=== PATIENT | female | born 1950 | race Caucasian/White ===

== ENCOUNTER 2016-07-18 10:20 | Outpatient (CLI) | payer BC | END 2016-07-18 10:21 | disposition home or self-care (01) | DX: E11.65 Type 2 diabetes mellitus with hyperglycemia (principal); E78.5 Hyperlipidemia, unspecified; Z79.899 Other long term (current) drug therapy ==

== ENCOUNTER 2016-11-07 09:00 | Outpatient (CLI) | payer BC | END 2016-11-07 23:59 | disposition home or self-care (01) | DX: N39.0 Urinary tract infection, site not specified (principal) ==

== ENCOUNTER 2016-11-14 11:37 | Outpatient (CLI) | payer BC | END 2016-11-14 11:38 | disposition home or self-care (01) | DX: E78.5 Hyperlipidemia, unspecified (principal); E11.65 Type 2 diabetes mellitus with hyperglycemia; Z79.899 Other long term (current) drug therapy ==

== ENCOUNTER 2017-03-01 13:44 | Outpatient (CLI) | payer BC ==
--- NOTE | 2017-03-02 12:31 | Mammography Report ---
DIGITAL SCREENING MAMMOGRAM: 03/01/2017 CLINICAL INDICATION: A 66-year-old nulliparous patient for screening. COMPARISON: 01/2015, 08/2012, 08/2010, 06/2009, 04/2008, 04/2007 TECHNIQUE: Routine CC and MLO projections were obtained of the breasts. FINDINGS: The breasts demonstrate scattered fibroglandular densities bilaterally. Coarse and puncta te, typically benign calcifications are present. No suspicious masses, clustered microcalcifications , or regions of architectural distortion are identified. IMPRESSION: BENIGN FINDINGS. RECOMMENDATION: Routine annual screening unless otherwise clinically indicated. BIRADS CATEGORY 2 - BENIGN FINDINGS. STANDARD QUALIFYING STATEMENTS 1. This examination was reviewed with the aid of Computer-Aided Detection (CAD). 2. A negative or benign imaging report should not delay biopsy if clinically suspicious findings are present. Consider surgical consultation if warranted. More than 5% of cancers are not identified by i maging. 3. Dense breasts may obscure an underlying neoplasm. JOB #: [id number] EXT JOB #:[id number]
== END 2017-03-01 13:45 | disposition home or self-care (01) ==
LOC: DI.N 13:44
PROVIDERS: ATTEND Physician Assistant Medical
DX: Z12.31 Encounter for screening mammogram for malignant neoplasm of breast (principal)
CPT/HCPCS: 77067

== ENCOUNTER 2017-03-04 12:22 | Outpatient (CLI) | payer BC | END 2017-03-04 12:23 | disposition short-term general hospital (02) | LOC: EMS 12:22 | PROVIDERS: ATTEND Surgery | DX: M25.551 Pain in right hip (principal); W01.0XXA Fall on same level from slipping, tripping and stumbling without subsequent striking against object, initial encounter; Y92.009 Unspecified place in unspecified non-institutional (private) residence as the place of occurrence of the external cause | CPT/HCPCS: A0425; A0427 ==

== ENCOUNTER 2017-08-28 08:00 | Outpatient (CLI) | payer MEDICARE, BC ==
[2017-08-28 13:39] LABS: BASOPHILS # (AUTO) 0.1 10^3/uL (0.0-0.1); EOSINOPHILS # (AUTO) 0.3 10^3/uL (0.0-0.7); EOSINOPHILS % (AUTO) 2.9 %; HGB - HEMOGLOBIN 10.6 g/dL (12.0-16.0); LYMPHOCYTES # (AUTO) 2.5 10^3/uL (1.5-3.5); MEAN CORPUSCULAR HEMOGLOBIN 26.1 pg (27.0-31.0); MEAN CORPUSCULAR VOLUME 78.9 fL (81.0-99.0); MEAN PLATELET VOLUME 9.5 fL (7.9-10.8); MONOCYTES # (AUTO) 0.6 10^3/uL (0.0-1.0); MONOCYTES % (AUTO) 6.6 %; NEUTROPHILS # (AUTO) 6.2 10^3/uL (1.5-6.6); NEUTROPHILS % (AUTO) 63.5 %; PLT - PLATELET COUNT 271 10^3/uL (130-450); RED BLOOD COUNT 4.07 10^6/uL (4.20-5.40); RED CELL DISTRIBUTION WIDTH 15.4 % (12.0-15.0); WHITE BLOOD COUNT 9.7 x10^3/uL (4.8-10.8)
[2017-08-28 14:08] LABS: ALBUMIN 3.5 g/dL (3.2-5.5); ALBUMIN/GLOBULIN RATIO 0.9 (1.0-2.2); ALKALINE PHOSPHATASE 98 IU/L (42-121); ALT ALANINE AMINOTRANSFERASE 15 IU/L (10-60); AST ASPARTATE AMINOTRANSFERASE 24 IU/L (10-42); BILIRUBIN,TOTAL 0.4 mg/dL (0.2-1.0); BUN - BLOOD UREA NITROGEN 34 mg/dL (6-20); CALCIUM 9.3 mg/dL (8.5-10.3); CARBON DIOXIDE - CO2 24 mmol/L (21-32); CHLORIDE 99 mmol/L (101-111); CHOL/HDL RATIO 6.1 (<4.4); CHOLESTEROL 239 mg/dL; CREATININE 1.1 mg/dL (0.4-1.0); GFR - MDRD 50 (>89); GLUCOSE 235 mg/dL (70-100); HDL CHOLESTEROL 39 mg/dL; SODIUM 134 mmol/L (135-145); TOTAL PROTEIN 7.3 g/dL (6.7-8.2)
[2017-08-28 14:28] LABS: LDL CHOLESTEROL,DIRECT 116 mg/dL
[2017-08-28 14:47] LABS: HB2 TOTAL 11.2 g/dL; HEMOGLOBIN A1C 1.06 g/dL; HEMOGLOBIN A1C % 10.8 % (4.6-6.2)
== END 2017-08-28 08:01 | disposition home or self-care (01) ==
LOC: LAB.WCP 08:00
PROVIDERS: ATTEND Physician Assistant Medical
DX: E11.65 Type 2 diabetes mellitus with hyperglycemia (principal)
CPT/HCPCS: 36415; 80053; 80061; 83036; 83721; 84443; 85025

== ENCOUNTER 2017-11-27 14:59 | Outpatient (CLI) | payer MEDICARE, BC ==
[2017-11-27 20:01] LABS: HB2 TOTAL 11.5 g/dL; HEMOGLOBIN A1C 0.82 g/dL; HEMOGLOBIN A1C % 8.7 % (4.6-6.2)
== END 2017-11-27 15:00 ==
LOC: LAB.WCP 14:59
PROVIDERS: ATTEND Physician Assistant
DX: E11.65 Type 2 diabetes mellitus with hyperglycemia (principal)
CPT/HCPCS: 36415; 83036

== ENCOUNTER 2017-12-20 08:00 | Outpatient (CLI) | payer MEDICARE, BC ==
[2017-12-20 18:54] LABS: BASOPHILS # (AUTO) 0.1 10^3/uL (0.0-0.1); EOSINOPHILS # (AUTO) 0.2 10^3/uL (0.0-0.7); EOSINOPHILS % (AUTO) 2.4 %; LYMPHOCYTES # (AUTO) 2.4 10^3/uL (1.5-3.5); LYMPHOCYTES % (AUTO) 27.8 %; MEAN CORPUSCULAR HEMOGLOBIN 26.2 pg (27.0-31.0); MEAN CORPUSCULAR HGB CONC 32.1 g/dL (32.0-36.0); MEAN CORPUSCULAR VOLUME 81.5 fL (81.0-99.0); MEAN PLATELET VOLUME 8.5 fL (7.9-10.8); MONOCYTES # (AUTO) 0.5 10^3/uL (0.0-1.0); NEUTROPHILS # (AUTO) 5.5 10^3/uL (1.5-6.6); NEUTROPHILS % (AUTO) 62.8 %; PLT - PLATELET COUNT 336 10^3/uL (130-450); RED BLOOD COUNT 4.19 10^6/uL (4.20-5.40); RED CELL DISTRIBUTION WIDTH 15.3 % (12.0-15.0); WHITE BLOOD COUNT 8.8 x10^3/uL (4.8-10.8)
[2017-12-20 19:28] LABS: ALBUMIN 3.7 g/dL (3.2-5.5); ALBUMIN/GLOBULIN RATIO 0.9 (1.0-2.2); BILIRUBIN,TOTAL 0.3 mg/dL (0.2-1.0); CALCIUM 9.7 mg/dL (8.5-10.3); CREATININE 1.1 mg/dL (0.4-1.0); MAGNESIUM 1.7 mg/dL (1.7-2.8); PHOSPHORUS 3.3 mg/dL (2.5-4.6); TOTAL PROTEIN 7.9 g/dL (6.7-8.2)
== END 2017-12-20 08:01 | disposition home or self-care (01) ==
LOC: LAB.WCP 08:00
PROVIDERS: ATTEND Physician Assistant
DX: R42 Dizziness and giddiness (principal); I10 Essential (primary) hypertension; R00.2 Palpitations; R07.89 Other chest pain; R06.09 Other forms of dyspnea
CPT/HCPCS: 36415; 80053; 83735; 84100; 85025

== ENCOUNTER 2017-12-25 10:54 | Outpatient (CLI) | payer MEDICARE, BC ==
[2017-12-25 13:26] LABS: % IRON SATURATION 7 % (20-50); IRON 31 ug/dL (28-170); TOTAL IRON BINDING CAPACITY 430 ug/dL (250-450); TRANSFERRIN 307 mg/dL (192-382)
== END 2017-12-25 10:55 | disposition home or self-care (01) ==
LOC: LAB.WCP 10:54
PROVIDERS: ATTEND Physician Assistant
DX: D64.9 Anemia, unspecified (principal)
CPT/HCPCS: 36415; 82728; 83540; 84466

== ENCOUNTER 2017-12-27 13:57 | Outpatient (CLI) | payer MEDICARE, BC | END 2017-12-27 13:58 | disposition home or self-care (01) | LOC: DI 13:57 | PROVIDERS: ATTEND Physician Assistant | DX: R07.89 Other chest pain (principal); R06.00 Dyspnea, unspecified | CPT/HCPCS: 93306 ==

== ENCOUNTER 2018-01-10 10:54 | Outpatient (CLI) | payer MEDICARE, BC ==
[2018-01-10] MEDS ORDERED: REGADENOSON 0.4 MG/5 ML SYRINGE IVP ONE (12:49)
--- NOTE | 2018-01-10 18:03 | CARDIAC PROCEDURE NOTE ---
DATE OF SERVICE: 01/10/2018 Physician: DANIELE Ibarra PCP: Heather Crowder PA-C PROCEDURE: Pharmacologic cardiac stress test. PROCEDURE SYMPTOMS: Fatigue, chest pain, dyspnea on exertion. CARDIAC RISK FACTORS: Age, diabetes, hypertension, hyperlipidemia. PREVIOUS CARDIAC PROCEDURES: ETT. CLINICAL HISTORY: A 67-year-old female without known coronary artery disease. INITIAL RESTING VITAL SIGNS: BP 118/76, heart rate 90, height 64 inches, weight 270 pounds, BMI 46.34. PROCEDURE AND FINDINGS: Patient identity and date verified. Consent signed. Pharmaceutical check. Pharmacologic stress testing was performed with Lexiscan at a dose of 0.4 mg over 10 seconds. The heart rate increased to 109 beats per minute from the infusion. Blood pressure response was normal during the stress procedure. The patient developed moderate infusion -related symptoms, which included chest heaviness, leg cramps, and headache. These symptoms resolved slowly over time. The resting electrocardiogram demonstrated normal sinus rhythm with no ST or T-wave changes. Maximum ST-segment depression with stress was less than 0.5 mm and upsloping. There were occasional monomorphic PVCs. FINAL IMPRESSION 1. Negative electrocardiogram for ischemia in the setting of vasodilator stress. 2. Nondiagnostic stress test for angina. 3. Occasional premature ventricular contractions. 4. Await myocardial perfusion report. TD: 01/10/2018 14:23 MTDSandra
[2018-01-10 18:52] VITALS: BP 118/76
[2018-01-11] MEDS ORDERED: REGADENOSON 0.4 MG/5 ML SYRINGE IVP ONE (12:41)
--- NOTE | 2018-01-11 14:19 | Nuclear Medicine Report ---
Procedure Date: 01/11/2018 Accession Number: [id number] / [id number] Procedure: NM - Myocardial Perfusion STR/RST CPT Code: FULL RESULT: EXAM: SINGLE-ISOTOPE PHARMACOLOGICAL STRESS TEST WITH REGADENOSON. SINGLE-ISOTOPE AND TWO-DAY REST/STRESS MYOCARDIAL PERFUSION SCANS WITH TOMOGRAPHIC IMAGING, QUANTITATIVE ANALYSIS, WALL MOTION ANALYSIS AND CALCULATION OF EJECTION FRACTION. EXAM DATE: 01/11/2018 12:45 PM. CLINICAL HISTORY: Chest pain, shortness of breath. COMPARISON: None. TECHNIQUE: A pharmacological stress was performed with the infusion of 0.4 mg regadenoson per protocol. According to protocol, 25 mCi of Tc-99m sestamibi was injected for stress myocardial perfusion scan. Motion correction was applied when appropriate. The following day after the intravenous administration of 25 mCi of Tc-99m sestamibi, a rest myocardial perfusion scan was done with tomography. Motion correction was applied when appropriate. Gated tomographic images were obtained for wall motion analysis and computation of left ventricular ejection fraction. FINDINGS: There is a small, mild, partial thickness, reversible apical perfusion defect. Wall motion analysis demonstrates normal wall motion. There is mild chamber enlargement which does not alter between rest and stress images. Left ventricular ejection fraction is 56%. IMPRESSION: 1. Small, mild partial-thickness reversible apical perfusion defect suggestive of ischemia. 2. Left ventricular ejection fraction of 56%, which is considered normal. 3. Normal segmental and global wall motion. 4. Mild left ventricular chamber enlargement on rest and stress imaging. RADIA
== END 2018-01-10 10:55 | disposition home or self-care (01) ==
LOC: DI 10:54
PROVIDERS: ATTEND Physician Assistant
DX: R07.89 Other chest pain (principal); R06.00 Dyspnea, unspecified; I51.7 Cardiomegaly
CPT/HCPCS: 78452; 93017; A9500; J2785

== ENCOUNTER 2018-04-05 09:59 | Outpatient (CLI) | payer MEDICARE, BC ==
[2018-04-05 13:29] LABS: HB2 TOTAL 12.3 g/dL; HEMOGLOBIN A1C 0.97 g/dL; HEMOGLOBIN A1C % 9.4 % (4.6-6.2)
== END 2018-04-05 10:00 | disposition home or self-care (01) ==
LOC: LAB.WCP 09:59
PROVIDERS: ATTEND Physician Assistant
DX: E11.65 Type 2 diabetes mellitus with hyperglycemia (principal)
CPT/HCPCS: 36415; 83036

== ENCOUNTER 2018-10-15 08:00 | Outpatient (CLI) | payer MEDICARE, BC ==
[2018-10-15 12:38] LABS: BASOPHILS # (AUTO) 0.1 10^3/uL (0.0-0.1); BASOPHILS % (AUTO) 1.1 %; EOSINOPHILS # (AUTO) 0.3 10^3/uL (0.0-0.7); EOSINOPHILS % (AUTO) 3.7 %; HGB - HEMOGLOBIN 11.9 g/dL (12.0-16.0); LYMPHOCYTES # (AUTO) 1.9 10^3/uL (1.5-3.5); LYMPHOCYTES % (AUTO) 23.1 %; MEAN CORPUSCULAR HEMOGLOBIN 26.8 pg (27.0-31.0); MEAN CORPUSCULAR HGB CONC 33.1 g/dL (32.0-36.0); MEAN CORPUSCULAR VOLUME 80.9 fL (81.0-99.0); MEAN PLATELET VOLUME 8.4 fL (7.9-10.8); MONOCYTES # (AUTO) 0.5 10^3/uL (0.0-1.0); MONOCYTES % (AUTO) 6.2 %; NEUTROPHILS # (AUTO) 5.4 10^3/uL (1.5-6.6); NEUTROPHILS % (AUTO) 65.9 %; PLT - PLATELET COUNT 262 10^3/uL (130-450); RED BLOOD COUNT 4.45 10^6/uL (4.20-5.40); WHITE BLOOD COUNT 8.2 x10^3/uL (4.8-10.8)
[2018-10-15 12:44] LABS: ALBUMIN 3.5 g/dL (3.2-5.5); ALBUMIN/GLOBULIN RATIO 0.9 (1.0-2.2); ALKALINE PHOSPHATASE 93 IU/L (42-121); ALT ALANINE AMINOTRANSFERASE 15 IU/L (10-60); AST ASPARTATE AMINOTRANSFERASE 17 IU/L (10-42); BILIRUBIN,TOTAL 0.5 mg/dL (0.2-1.0); BUN - BLOOD UREA NITROGEN 25 mg/dL (6-20); CALCIUM 9.5 mg/dL (8.5-10.3); CARBON DIOXIDE - CO2 28 mmol/L (21-32); CHLORIDE 97 mmol/L (101-111); CHOL/HDL RATIO 5.3 (<4.4); CHOLESTEROL 218 mg/dL; CREATININE 0.8 mg/dL (0.4-1.0); GFR - MDRD 72 (>89); GLUCOSE 217 mg/dL (70-100); HDL CHOLESTEROL 41 mg/dL; LDL CHOLESTEROL,CALCULATED 115 mg/dL; LDL/HDL RATIO 2.8 (<4.4); SODIUM 137 mmol/L (135-145); TOTAL PROTEIN 7.2 g/dL (6.7-8.2); VLDL CHOLESTEROL 62 mg/dL
[2018-10-15 12:52] LABS: HB2 TOTAL 12.6 g/dL; HEMOGLOBIN A1C 1.13 g/dL; HEMOGLOBIN A1C % 10.4 % (4.6-6.2)
== END 2018-10-15 23:59 | disposition home or self-care (01) ==
LOC: LAB.WCP 08:00
PROVIDERS: ATTEND Physician Assistant
DX: E11.65 Type 2 diabetes mellitus with hyperglycemia (principal); E78.5 Hyperlipidemia, unspecified
CPT/HCPCS: 36415; 80053; 80061; 83036; 83721; 85025

== ENCOUNTER 2018-11-17 15:48 | Outpatient (CLI) | payer MEDICARE, BC ==
--- NOTE | 2018-11-18 09:36 | Ultrasound Report ---
Reason: ABDOMINAL MASS,LEFT LOWER QUADRANT Procedure Date: 11/17/2018 Accession Number: [id number] / [id number] Procedure: US - Abdomen Limited CPT Code: FULL RESULT: EXAM: ABDOMEN ULTRASOUND LIMITED EXAM DATE: 11/17/2018 04:22 PM. CLINICAL HISTORY: Abdominal mass, left lower quadrant. COMPARISON: None. TECHNIQUE: Real-time scanning was performed with static images obtained. FINDINGS: The area of clinical interest along the left lower quadrant abdominal wall was interrogated with grayscale and limited color Doppler ultrasound. This reveals mild thickening of the dermal layer decreased echogenicity is slightly heterogeneous in appearance without discrete mass or fluid collection. Limited color Doppler demonstrates no abnormal vascularity. IMPRESSION: Nonspecific induration of the dermal layer corresponds to the area of physical finding and patient discomfort. RADIA
== END 2018-11-17 15:49 | disposition home or self-care (01) ==
LOC: DI 15:48
PROVIDERS: ATTEND Physician Assistant
DX: R19.04 Left lower quadrant abdominal swelling, mass and lump (principal); L85.9 Epidermal thickening, unspecified
CPT/HCPCS: 76705

== ENCOUNTER 2018-11-19 08:00 | Outpatient (CLI) | payer MEDICARE, BC | END 2018-11-19 23:59 | disposition home or self-care (01) | LOC: LAB.R 08:00 | PROVIDERS: ATTEND Physician Assistant Medical | DX: L03.319 Cellulitis of trunk, unspecified (principal) | CPT/HCPCS: 87070; 87205 ==

== ENCOUNTER 2018-12-25 08:00 | Outpatient (CLI) | payer MEDICARE, BC ==
[2018-12-25 12:53] LABS: BASOPHILS # (AUTO) 0.1 10^3/uL (0.0-0.1); BASOPHILS % (AUTO) 0.6 %; EOSINOPHILS # (AUTO) 0.3 10^3/uL (0.0-0.7); EOSINOPHILS % (AUTO) 2.9 %; HGB - HEMOGLOBIN 11.8 g/dL (12.0-16.0); LYMPHOCYTES # (AUTO) 1.9 10^3/uL (1.5-3.5); LYMPHOCYTES % (AUTO) 19.3 %; MEAN CORPUSCULAR HEMOGLOBIN 25.6 pg (27.0-31.0); MEAN CORPUSCULAR HGB CONC 29.9 g/dL (32.0-36.0); MEAN CORPUSCULAR VOLUME 85.5 fL (81.0-99.0); MEAN PLATELET VOLUME 10.6 fL (7.9-10.8); MONOCYTES # (AUTO) 0.6 10^3/uL (0.0-1.0); MONOCYTES % (AUTO) 6.2 %; NEUTROPHILS # (AUTO) 6.9 10^3/uL (1.5-6.6); NEUTROPHILS % (AUTO) 70.5 %; PLT - PLATELET COUNT 311 10^3/uL (130-450); RED BLOOD COUNT 4.61 10^6/uL (4.20-5.40); RED CELL DISTRIBUTION WIDTH 14.4 % (12.0-15.0); WHITE BLOOD COUNT 9.7 x10^3/uL (4.8-10.8)
[2018-12-25 13:23] LABS: ALBUMIN 3.5 g/dL (3.2-5.5); ALBUMIN/GLOBULIN RATIO 0.9 (1.0-2.2); BILIRUBIN,TOTAL 0.6 mg/dL (0.2-1.0); CALCIUM 9.4 mg/dL (8.5-10.3); TOTAL PROTEIN 7.5 g/dL (6.7-8.2)
[2018-12-25 13:29] LABS: HB2 TOTAL 12.3 g/dL; HEMOGLOBIN A1C 0.98 g/dL; HEMOGLOBIN A1C % 9.4 % (4.6-6.2)
== END 2018-12-25 23:59 | disposition home or self-care (01) ==
LOC: LAB.WCP 08:00
PROVIDERS: ATTEND Physician Assistant
DX: E11.65 Type 2 diabetes mellitus with hyperglycemia (principal)
CPT/HCPCS: 36415; 80053; 83036; 85025

== ENCOUNTER 2019-06-12 14:07 | Outpatient (CLI) | payer MEDICARE, BC ==
[2019-06-12 18:52] LABS: BASOPHILS # (AUTO) 0.1 10^3/uL (0.0-0.1); BASOPHILS % (AUTO) 0.7 %; EOSINOPHILS # (AUTO) 0.2 10^3/uL (0.0-0.7); EOSINOPHILS % (AUTO) 1.8 %; HGB - HEMOGLOBIN 13.1 g/dL (12.0-16.0); LYMPHOCYTES % (AUTO) 25.5 %; MEAN CORPUSCULAR HEMOGLOBIN 26.6 pg (27.0-31.0); MEAN CORPUSCULAR HGB CONC 30.8 g/dL (32.0-36.0); MEAN CORPUSCULAR VOLUME 86.4 fL (81.0-99.0); MEAN PLATELET VOLUME 10.8 fL (7.9-10.8); MONOCYTES # (AUTO) 0.9 10^3/uL (0.0-1.0); MONOCYTES % (AUTO) 7.8 %; NEUTROPHILS # (AUTO) 7.6 10^3/uL (1.5-6.6); NEUTROPHILS % (AUTO) 63.8 %; PLT - PLATELET COUNT 327 10^3/uL (130-450); RED BLOOD COUNT 4.93 10^6/uL (4.20-5.40); RED CELL DISTRIBUTION WIDTH 14.6 % (12.0-15.0); WHITE BLOOD COUNT 11.9 x10^3/uL (4.8-10.8)
[2019-06-12 19:10] LABS: BILIRUBIN,TOTAL 0.6 mg/dL (0.2-1.0); CALCIUM 9.3 mg/dL (8.5-10.3); CREATININE 1.5 mg/dL (0.4-1.0); HB2 TOTAL 13.1 g/dL; HEMOGLOBIN A1C 1.09 g/dL; HEMOGLOBIN A1C % 9.8 % (4.6-6.2); TOTAL PROTEIN 8.1 g/dL (6.7-8.2)
== END 2019-06-12 23:59 | disposition home or self-care (01) ==
LOC: LAB.WCP 14:07
PROVIDERS: ATTEND Physician Assistant
DX: E11.65 Type 2 diabetes mellitus with hyperglycemia (principal)
CPT/HCPCS: 36415; 80053; 83036; 85025

== ENCOUNTER 2020-03-17 08:00 | Outpatient (CLI) | payer MEDICARE, BC ==
[2020-03-17 18:34] LABS: BASOPHILS # (AUTO) 0.1 10^3/uL (0.0-0.1); BASOPHILS % (AUTO) 0.9 %; EOSINOPHILS # (AUTO) 0.4 10^3/uL (0.0-0.7); EOSINOPHILS % (AUTO) 5.6 %; HGB - HEMOGLOBIN 11.2 g/dL (12.0-16.0); LYMPHOCYTES # (AUTO) 2.1 10^3/uL (1.5-3.5); LYMPHOCYTES % (AUTO) 32.6 %; MEAN CORPUSCULAR HEMOGLOBIN 26.9 pg (27.0-31.0); MEAN CORPUSCULAR HGB CONC 30.3 g/dL (32.0-36.0); MEAN CORPUSCULAR VOLUME 88.9 fL (81.0-99.0); MEAN PLATELET VOLUME 10.7 fL (7.9-10.8); MONOCYTES # (AUTO) 0.4 10^3/uL (0.0-1.0); MONOCYTES % (AUTO) 6.2 %; NEUTROPHILS # (AUTO) 3.6 10^3/uL (1.5-6.6); NEUTROPHILS % (AUTO) 54.2 %; PLT - PLATELET COUNT 307 10^3/uL (130-450); RED BLOOD COUNT 4.16 10^6/uL (4.20-5.40); RED CELL DISTRIBUTION WIDTH 14.2 % (12.0-15.0); WHITE BLOOD COUNT 6.6 x10^3/uL (4.8-10.8)
[2020-03-17 19:30] LABS: ALBUMIN 3.8 g/dL (3.2-5.5); ALBUMIN/GLOBULIN RATIO 1.2 (1.0-2.2); ALKALINE PHOSPHATASE 76 IU/L (42-121); ALT ALANINE AMINOTRANSFERASE 14 IU/L (10-60); AST ASPARTATE AMINOTRANSFERASE 18 IU/L (10-42); BILIRUBIN,TOTAL 0.7 mg/dL (0.2-1.0); BUN - BLOOD UREA NITROGEN 21 mg/dL (6-20); CALCIUM 9.6 mg/dL (8.5-10.3); CARBON DIOXIDE - CO2 27 mmol/L (21-32); CHLORIDE 98 mmol/L (101-111); CHOL/HDL RATIO 4.1 (<4.4); CHOLESTEROL 224 mg/dL; GLUCOSE 226 mg/dL (70-100); HDL CHOLESTEROL 55 mg/dL; LDL CHOLESTEROL,CALCULATED 122 mg/dL; LDL/HDL RATIO 2.2 (<4.4); SODIUM 136 mmol/L (135-145); TOTAL PROTEIN 7.1 g/dL (6.7-8.2); VLDL CHOLESTEROL 47 mg/dL
[2020-03-17 19:51] LABS: HEMOGLOBIN A1c% 10.2 % (4.27-6.07)
== END 2020-03-17 23:59 | disposition home or self-care (01) ==
LOC: LAB.WCP 08:00
PROVIDERS: ATTEND Physician Assistant
DX: E11.65 Type 2 diabetes mellitus with hyperglycemia (principal); E78.5 Hyperlipidemia, unspecified
CPT/HCPCS: 36415; 80053; 80061; 82043; 82570; 83036; 83721; 85025

== ENCOUNTER 2020-04-05 15:13 | Outpatient (CLI) | payer MEDICARE, BC | END 2020-04-05 15:14 | disposition home or self-care (01) | LOC: LAB 15:13 | PROVIDERS: ATTEND Ophthalmology | DX: Z01.812 Encounter for preprocedural laboratory examination (principal); Z20.828 Contact with and (suspected) exposure to other viral communicable diseases; H25.811 Combined forms of age-related cataract, right eye ==

== ENCOUNTER 2020-04-08 07:36 | Day surgery (SDC) | payer MEDICARE, BC ==
[2020-04-08] MEDS ORDERED: PHENYLEPHRINE 2.5% OPHTH 2 ML DROPS ONE (07:37)
[2020-04-08] MEDS ORDERED: KETOROLAC 0.45% OPHTH DROPS ONE (07:37)
[2020-04-08] MEDS ORDERED: PROPARACAINE 0.5% OPHTH DROPS 15 ML ONE (07:38)
[2020-04-08] MEDS ORDERED: LACTATED RINGERS 500 ML IV ONE ×2 (07:39→08:55)
[2020-04-08] MEDS ORDERED: CYCLOPENTOLATE 1% OPHTH DROPS 2 ML RIGHTEYE ONE (07:55)
[2020-04-08] MEDS ORDERED: MORPHINE 2 MG/ML CARPUJECT IVP PRN (08:11)
[2020-04-08] MEDS ORDERED: METOCLOPRAMIDE 10 MG/2 ML VIAL IVP PRN (08:11)
[2020-04-08] MEDS ORDERED: HYDROmorphone 0.5 MG/0.5 ML SYRINGE IVP PRN (08:11)
[2020-04-08] MEDS ORDERED: fentaNYL 100 MCG/2 ML VIAL IVP PRN (08:11)
[2020-04-08] MEDS ORDERED: ePHEDrine 50 MG/ML VIAL IVP PRN (08:11)
[2020-04-08] MEDS ORDERED: ONDANSETRON 4 MG/2 ML VIAL IVP PRN (08:11)
[2020-04-08] MEDS ORDERED: NALOXONE 0.4 MG/ML VIAL IVP PRN (08:11)
[2020-04-08] MEDS ORDERED: ATROPINE ABBOJECT 1 MG/10 ML SYRINGE IVP PRN (08:11)
--- NOTE | 2020-04-08 08:11 | ANESTHESIA ---
Pre-Anesthesia VS, & Labs - Diagnosis right eye cataract - Procedure right CATIOL Vital Signs: Temp Pulse Resp BP Pulse Ox 35.8 C L 76 20 132/55 H 96 04/08/20 07:43 04/08/20 07:43 04/08/20 07:43 04/08/20 07:43 04/08/20 07:43 Height: 5 ft 4 in Weight (kg): 114 kg Body Mass Index: 43.1 BMI Classification: Morbidly Obese - NPO >8 hours - Is Patient ?: No - Lab Results Current Lab Results: Laboratory Tests 04/08/20 08:00: POC Whole Bld Glucose 228 H Lab results reviewed: Yes Home Medications and Allergies Cetirizine HCl [Zyrtec] 10 mg PO DAILY 08/31/15 Excedrin 2 tab PO QID PRN 08/31/15 Gabapentin 600 mg PO TID 08/31/15 Insulin Glargine,Hum.rec.anlog [Toujeo Solostar] 50 unit SQ DAILY PM 08/31/15 Insulin Glulisine [Apidra Solostar] 0 - 30 unit SQ TIDWM 08/31/15 LORazepam [Lorazepam] 0.5 mg PO BID PRN 08/31/15 Lovastatin 80 mg PO QPM 08/31/15 Metformin HCl 1,000 mg PO BID 08/31/15 Triamterene/Hydrochlorothiazid [Triamterene-Hctz 75-50 mg Tab] 0.5 each PO DAILY 08/31/15 lisinopriL [Lisinopril] 10 mg PO DAILY 08/31/15 Dulaglutide [Trulicity] 1.5 mg SQ OAW 12/18/18 Ferrous Sulfate 325 mg PO DAILY 12/18/18 Metoprolol Succinate 25 mg PO BID 12/18/18 Cholecalciferol (Vitamin D3) [Vitamin D3] 1 tab PO DAILY 12/30/19 Escitalopram [Lexapro] 10 mg PO DAILY 12/30/19 Allergies/Adverse Reactions: Allergies Allergy/AdvReac Type Severity Reaction Status Date / Time codeine Allergy Itching Verified 08/31/15 16:07 Anes History & Medical History - Anesthetic History Anesthesia Complications: reports: No previous complications Family history of Anesthesia Complications: Denies Family history of Malignant Hyperthermia: Denies - Medical History Cardiovascular: reports: Hypertension, High cholesterol, Other Pulmonary: reports: None Gastrointestinal: reports: GERD Urinary: reports: Nocturia, Frequency Musculoskeletal: reports: Osteoarthritis, Chronic back pain Endocrine/Autoimmune: reports: Type 2 diabetes Blood Disorders: reports: Anemia Skin: reports: None Smoking Status: Never smoker Psychosocial: reports: Anxiety - Surgical History General: Cholecystectomy, Appendectomy, Hiatal hernia repair Eyes Ears Nose Throat (EENT): Tonsil/Adenoidectomy Orthopedic: Hip replacement, Rotator cuff repair, Spine surgery Exam General: Alert, Oriented x3, Cooperative, No acute distress Dental: WNL Mouth Openin Fingerbreadth Mallampati classification: II Respiratory: Lungs clear, Normal breath sounds, No respiratory distress, No accessory muscle use Cardiovascular: Regular rate, Normal S1, Normal S2, No murmurs Plan Anesthesia Type: MAC Consent for Procedure(s) Verified and Reviewed: Yes Code Status: Attempt Resuscitation ASA classification: 3-Severe systemic disease Is this case an emergency?: No
[2020-04-08] MEDS ORDERED: BRIMONIDINE 0.2% OPHTH DROPS 5 ML OPTH ONE (08:33)
[2020-04-08] MEDS ORDERED: CHONDR SULF/HYALURONATE SYRINGE IO ONE (08:34)
[2020-04-08] MEDS ORDERED: EPINEPHrine 1 MG/ML AMP IR ONE (08:34)
[2020-04-08] MEDS ORDERED: TIMOLOL 0.5% OPHTH DROPS OPTH ONE (08:35)
[2020-04-08] MEDS ORDERED: BSS/LIDOCAINE/EPINEPHRINE 1 ML SYRINGE IO ONE (08:39)
[2020-04-08] MEDS ORDERED: TRIAMCIN/MOXIFLOX OPHTHALMIC 0.6 ML VIAL IO ONE (08:39)
[2020-04-08] MEDS ORDERED: VANCOMYCIN OPHTHALMI 8MG/0.8ML 8 MG/0.8 ML SYRINGE IO ONE (08:42)
[2020-04-08] MEDS ORDERED: PROPARACAINE 0.5% OPHTH DROPS 15 ML EACHEYE ONE (08:42)
[2020-04-08] MEDS ORDERED: LACTATED RINGERS 1,000 ML IV SCH (09:00)
--- NOTE | 2020-04-08 09:02 | ANESTHESIA POST OP EVALUATION ---
Anesthesia Post Eval - Post Anesthesia Eval Vitals: Last Vital Signs Temp 35.8 C L 04/08/20 08:55 Pulse 70 04/08/20 09:00 Resp 14 04/08/20 09:00 BP 114/64 04/08/20 09:00 Pulse Ox 97 04/08/20 09:00 CV Function Including HR & BP: positive: Stable Pain Control: positive: Satisfactory Nausea & Vomiting: positive: Negative Mental Status: positive: Baseline Respiratory Status: Airway Patent Hydration Status: Satisfactory Anesthesia Complications: positive: None
[2020-04-08 09:22] VITALS: BP 107/66
--- NOTE | 2020-04-08 19:28 | PROCEDURE REPORT ---
DATE OF SERVICE: 04/08/2020 Physician: Hitesh Francis MD DATE OF PROCEDURE 04/08/2020. PREOPERATIVE DIAGNOSIS Visually significant cataract, right eye; this was her first cataract surger y. POSTOPERATIVE DIAGNOSIS Visually significant cataract, right eye; this was her first cataract surger y. PROCEDURE PERFORMED Phacoemulsification with posterior chamber intraocular lens implant, right eye. SURGEON Hitesh Francis MD ANESTHESIA Monitored anesthesia care. COMPLICATIONS None. OPERATIVE INDICATIONS This is a 69-year-old woman with progressive vision loss in the right eye due to 2+ nuclear sclerotic and 3+ cortical cataract. Best corrected visual acuity was 20/500, with glar e to count fingers vision in the right eye. Indications for surgery are overall decrease in vision, difficulty seeing words on a computer screen, difficulty reading, difficulty seeing words closed capt ion or game scores on TV, difficulty driving in low light or at night, difficulty driving at night be cause of headlights from other vehicles, and difficulty with glare or bright lights in any situation. She was also complaining of depth perception and decrement and tripping danger. She was consented at length concerning risks and benefits of cataract surgery, after which she expressed a desire to pr oceed with surgery. OPERATIVE PROCEDURE The patient was taken to OR #3 and placed under monitored anesthesia care. A surgical timeout was conducted confirming correct patient, correct procedure, and correct surgical s ite. She was given topical anesthesia, and prepped and draped in the usual sterile fashion. The eye was entered at the 12 and 9 o'clock positions. Intracameral Shugarcaine was injected into the anter ior chamber, followed by Viscoat. A continuous-tear curvilinear capsulorrhexis was performed. The n ucleus was hydrodissected and phacoemulsified. The cortex was evacuated using automated infusion and aspiration. Provisc was injected in the capsular bag, and a 22.0 diopter intraocular lens was inser patricio into the bag. Infusion and aspiration was used to evacuate the viscoelastic materials. The eye was inflated to physiologic pressure using balanced salt solution and found to be watertight. Approx imately 0.25 mL of a mixture of triamcinolone and moxifloxacin was injected transsclerally into the v itreous inferotemporal quadrant. An additional 0.55 mL of a mixture of triamcinolone, moxifloxacin a nd vancomycin was injected subconjunctivally in the superior quadrant for infection and inflammation prophylaxis. Wound integrity was checked with Weck-Christen sponges. Patient was taken from the Operatin g Room in good condition and given postoperative instructions. TD: 04/08/2020 09:05
== END 2020-04-08 07:37 | disposition home or self-care (01) ==
LOC: SDS 07:36
PROVIDERS: ATTEND Ophthalmology
DX: E11.36 Type 2 diabetes mellitus with diabetic cataract (principal); H25.811 Combined forms of age-related cataract, right eye; Z79.4 Long term (current) use of insulin; I10 Essential (primary) hypertension; F41.9 Anxiety disorder, unspecified
CPT/HCPCS: 66984; A9270; J3490; J7120

== ENCOUNTER 2020-12-02 08:00 | Outpatient (CLI) | payer MEDICARE, BC ==
[2020-12-02 17:43] LABS: BASOPHILS # (AUTO) 0.1 10^3/uL (0.0-0.1); EOSINOPHILS # (AUTO) 0.3 10^3/uL (0.0-0.7); EOSINOPHILS % (AUTO) 3.1 %; HCT - HEMATOCRIT 39.2 % (37.0-47.0); HGB - HEMOGLOBIN 12.3 g/dL (12.0-16.0); LYMPHOCYTES # (AUTO) 3.3 10^3/uL (1.5-3.5); LYMPHOCYTES % (AUTO) 34.6 %; MEAN CORPUSCULAR HEMOGLOBIN 26.7 pg (27.0-31.0); MEAN CORPUSCULAR HGB CONC 31.4 g/dL (32.0-36.0); MEAN PLATELET VOLUME 11.3 fL (7.9-10.8); MONOCYTES # (AUTO) 0.7 10^3/uL (0.0-1.0); NEUTROPHILS # (AUTO) 5.2 10^3/uL (1.5-6.6); PLT - PLATELET COUNT 300 10^3/uL (130-450); RED BLOOD COUNT 4.61 10^6/uL (4.20-5.40); RED CELL DISTRIBUTION WIDTH 13.6 % (12.0-15.0); WHITE BLOOD COUNT 9.6 x10^3/uL (4.8-10.8)
[2020-12-02 18:19] LABS: ALBUMIN/GLOBULIN RATIO 1.1 (1.0-2.2); ALKALINE PHOSPHATASE 93 IU/L (42-121); ALT ALANINE AMINOTRANSFERASE 14 IU/L (10-60); AST ASPARTATE AMINOTRANSFERASE 16 IU/L (10-42); BILIRUBIN,TOTAL 0.5 mg/dL (0.2-1.0); BUN - BLOOD UREA NITROGEN 35 mg/dL (6-20); CALCIUM 10.2 mg/dL (8.5-10.3); CARBON DIOXIDE - CO2 24 mmol/L (21-32); CHLORIDE 97 mmol/L (101-111); CHOL/HDL RATIO 6.1 (<4.4); CHOLESTEROL 275 mg/dL; CREATININE 1.1 mg/dL (0.4-1.0); GFR - MDRD 49 (>89); GLUCOSE 274 mg/dL (70-100); HDL CHOLESTEROL 45 mg/dL; POTASSIUM 4.7 mmol/L (3.5-5.0); SODIUM 135 mmol/L (135-145); TOTAL PROTEIN 7.6 g/dL (6.7-8.2); TRIGLYCERIDES 417 mg/dL
[2020-12-02 18:21] LABS: MICROALBUM/CREATININE RATIO,UR 48.1 ug/mg (<30.0); MICROALBUMIN,URINE 3.9 mg/dL (0-300.0)
[2020-12-02 18:22] LABS: THYROID STIMULATING HORMONE 3.45 uIU/mL (0.34-5.60)
[2020-12-02 18:47] LABS: LDL CHOLESTEROL,DIRECT 174 mg/dL; LDLD/HDL RATIO 3.9 (<4.4)
[2020-12-02 20:05] LABS: ESTIMATED AVERAGE GLUCOSE 258 mg/dL (70-100); HEMOGLOBIN A1c% 10.6 % (4.27-6.07)
== END 2020-12-02 23:59 | disposition home or self-care (01) ==
LOC: LAB.WCP 08:00
PROVIDERS: ATTEND Family Medicine
DX: E11.8 Type 2 diabetes mellitus with unspecified complications (principal)
CPT/HCPCS: 36415; 80053; 80061; 82043; 82570; 83036; 83721; 84443; 85025

== ENCOUNTER 2021-03-02 08:48 | Outpatient (CLI) | payer MEDICARE, BC ==
[2021-03-02 12:42] LABS: ALBUMIN 3.7 g/dL (3.2-5.5); ALKALINE PHOSPHATASE 75 IU/L (42-121); ALT ALANINE AMINOTRANSFERASE 12 IU/L (10-60); AST ASPARTATE AMINOTRANSFERASE 15 IU/L (10-42); BILIRUBIN,TOTAL 0.5 mg/dL (0.2-1.0); BUN - BLOOD UREA NITROGEN 19 mg/dL (6-20); CALCIUM 9.5 mg/dL (8.5-10.3); CARBON DIOXIDE - CO2 26 mmol/L (21-32); CHLORIDE 104 mmol/L (101-111); CHOL/HDL RATIO 4.1 (<4.4); CHOLESTEROL 216 mg/dL; CREATININE 0.9 mg/dL (0.4-1.0); GFR - MDRD 62 (>89); GLUCOSE 200 mg/dL (70-100); HDL CHOLESTEROL 53 mg/dL; LDL CHOLESTEROL,CALCULATED 114 mg/dL; LDL/HDL RATIO 2.2 (<4.4); POTASSIUM 4.3 mmol/L (3.5-5.0); SODIUM 140 mmol/L (135-145); TOTAL PROTEIN 7.4 g/dL (6.7-8.2); TRIGLYCERIDES 244 mg/dL; VLDL CHOLESTEROL 49 mg/dL
[2021-03-02 12:46] LABS: ESTIMATED AVERAGE GLUCOSE 194 mg/dL (70-100); HEMOGLOBIN A1c% 8.4 % (4.27-6.07)
== END 2021-03-02 23:59 | disposition home or self-care (01) ==
LOC: LAB.WCP 08:48
PROVIDERS: ATTEND Family Medicine
DX: E11.8 Type 2 diabetes mellitus with unspecified complications (principal)
CPT/HCPCS: 36415; 80053; 80061; 83036; 83721

== ENCOUNTER 2021-05-24 09:18 | Outpatient (CLI) | payer MEDICARE, BC ==
[2021-05-24 12:31] LABS: ESTIMATED AVERAGE GLUCOSE 229 mg/dL (70-100); HEMOGLOBIN A1c% 9.6 % (4.27-6.07)
[2021-05-24 13:15] LABS: ALBUMIN 3.7 g/dL (3.2-5.5); ALBUMIN/GLOBULIN RATIO 1.1 (1.0-2.2); ALKALINE PHOSPHATASE 78 IU/L (42-121); ALT ALANINE AMINOTRANSFERASE 10 IU/L (10-60); AST ASPARTATE AMINOTRANSFERASE 14 IU/L (10-42); BILIRUBIN,TOTAL 0.8 mg/dL (0.2-1.0); BUN - BLOOD UREA NITROGEN 22 mg/dL (6-20); CALCIUM 9.8 mg/dL (8.5-10.3); CARBON DIOXIDE - CO2 29 mmol/L (21-32); CHLORIDE 102 mmol/L (101-111); CHOL/HDL RATIO 5.4 (<4.4); CHOLESTEROL 231 mg/dL; GFR - MDRD 55 (>89); GLUCOSE 142 mg/dL (70-100); HDL CHOLESTEROL 43 mg/dL; LDL CHOLESTEROL,CALCULATED 152 mg/dL; LDL/HDL RATIO 3.5 (<4.4); POTASSIUM 4.1 mmol/L (3.5-5.0); SODIUM 140 mmol/L (135-145); TOTAL PROTEIN 7.2 g/dL (6.7-8.2); TRIGLYCERIDES 181 mg/dL; VLDL CHOLESTEROL 36 mg/dL
[2021-05-24 13:21] LABS: BASOPHILS % (AUTO) 0.5 %; EOSINOPHILS # (AUTO) 0.3 10^3/uL (0.0-0.7); EOSINOPHILS % (AUTO) 3.1 %; HCT - HEMATOCRIT 38.9 % (37.0-47.0); HGB - HEMOGLOBIN 12.1 g/dL (12.0-16.0); LYMPHOCYTES % (AUTO) 35.5 %; MEAN CORPUSCULAR HEMOGLOBIN 26.7 pg (27.0-31.0); MEAN CORPUSCULAR HGB CONC 31.1 g/dL (32.0-36.0); MEAN CORPUSCULAR VOLUME 85.7 fL (81.0-99.0); MEAN PLATELET VOLUME 11.6 fL (7.9-10.8); MONOCYTES # (AUTO) 0.7 10^3/uL (0.0-1.0); MONOCYTES % (AUTO) 8.3 %; NEUTROPHILS # (AUTO) 4.4 10^3/uL (1.5-6.6); NEUTROPHILS % (AUTO) 52.2 %; PLT - PLATELET COUNT 287 10^3/uL (130-450); RED BLOOD COUNT 4.54 10^6/uL (4.20-5.40); RED CELL DISTRIBUTION WIDTH 13.7 % (12.0-15.0); WHITE BLOOD COUNT 8.4 x10^3/uL (4.8-10.8)
== END 2021-05-24 23:59 | disposition home or self-care (01) ==
LOC: LAB.WCP 09:18
PROVIDERS: ATTEND Family Medicine
DX: E11.8 Type 2 diabetes mellitus with unspecified complications (principal)
CPT/HCPCS: 36415; 80053; 80061; 83036; 83721; 85025

== ENCOUNTER 2021-08-27 09:48 | Outpatient (CLI) | payer MEDICARE, BC ==
[2021-08-27 14:07] LABS: BASOPHILS # (AUTO) 0.1 10^3/uL (0.0-0.1); BASOPHILS % (AUTO) 0.8 %; EOSINOPHILS # (AUTO) 0.3 10^3/uL (0.0-0.7); EOSINOPHILS % (AUTO) 2.6 %; HCT - HEMATOCRIT 39.1 % (37.0-47.0); HGB - HEMOGLOBIN 12.2 g/dL (12.0-16.0); LYMPHOCYTES # (AUTO) 3.5 10^3/uL (1.5-3.5); LYMPHOCYTES % (AUTO) 32.6 %; MEAN CORPUSCULAR HGB CONC 31.2 g/dL (32.0-36.0); MEAN CORPUSCULAR VOLUME 83.4 fL (81.0-99.0); MEAN PLATELET VOLUME 11.4 fL (7.9-10.8); MONOCYTES # (AUTO) 0.7 10^3/uL (0.0-1.0); MONOCYTES % (AUTO) 6.9 %; NEUTROPHILS % (AUTO) 56.8 %; PLT - PLATELET COUNT 289 10^3/uL (130-450); RED BLOOD COUNT 4.69 10^6/uL (4.20-5.40); RED CELL DISTRIBUTION WIDTH 14.1 % (12.0-15.0); WHITE BLOOD COUNT 10.6 x10^3/uL (4.8-10.8)
[2021-08-27 14:35] LABS: ALBUMIN 3.8 g/dL (3.2-5.5); ALBUMIN/GLOBULIN RATIO 1.1 (1.0-2.2); ALKALINE PHOSPHATASE 76 IU/L (42-121); ALT ALANINE AMINOTRANSFERASE 14 IU/L (10-60); AST ASPARTATE AMINOTRANSFERASE 13 IU/L (10-42); BILIRUBIN,TOTAL 0.4 mg/dL (0.2-1.0); BUN - BLOOD UREA NITROGEN 21 mg/dL (6-20); CALCIUM 9.8 mg/dL (8.5-10.3); CARBON DIOXIDE - CO2 27 mmol/L (21-32); CHLORIDE 101 mmol/L (101-111); CHOL/HDL RATIO 4.8 (<4.4); CHOLESTEROL 226 mg/dL; GFR - MDRD 55 (>89); GLUCOSE 96 mg/dL (70-100); HDL CHOLESTEROL 47 mg/dL; LDL CHOLESTEROL,CALCULATED 150 mg/dL; LDL/HDL RATIO 3.2 (<4.4); POTASSIUM 3.6 mmol/L (3.5-5.0); SODIUM 140 mmol/L (135-145); TOTAL PROTEIN 7.2 g/dL (6.7-8.2); TRIGLYCERIDES 144 mg/dL; VLDL CHOLESTEROL 29 mg/dL
[2021-08-27 14:52] LABS: ESTIMATED AVERAGE GLUCOSE 214 mg/dL (70-100); HEMOGLOBIN A1c% 9.1 % (4.27-6.07)
[2021-08-27 18:16] LABS: CREATININE,URINE 192.3 mg/dL; MICROALBUM/CREATININE RATIO,UR 67.6 ug/mg (<30.0)
== END 2021-08-27 09:49 | disposition home or self-care (01) ==
LOC: LAB.N 09:48
PROVIDERS: ATTEND Family Medicine
DX: E11.8 Type 2 diabetes mellitus with unspecified complications (principal)
CPT/HCPCS: 36415; 80053; 80061; 82043; 82570; 83036; 83721; 85025

== ENCOUNTER 2022-01-06 11:53 | Outpatient (CLI) | payer MEDICARE, BC ==
[2022-01-06 18:07] LABS: ALBUMIN 3.5 g/dL (3.2-5.5); ALBUMIN/GLOBULIN RATIO 0.9 (1.0-2.2); ALKALINE PHOSPHATASE 96 IU/L (42-121); ALT ALANINE AMINOTRANSFERASE 19 IU/L (10-60); AST ASPARTATE AMINOTRANSFERASE 19 IU/L (10-42); BILIRUBIN,TOTAL 0.5 mg/dL (0.2-1.0); BUN - BLOOD UREA NITROGEN 27 mg/dL (6-20); CALCIUM 9.8 mg/dL (8.5-10.3); CARBON DIOXIDE - CO2 24 mmol/L (21-32); CHLORIDE 101 mmol/L (101-111); CHOL/HDL RATIO 4.7 (<4.4); CHOLESTEROL 243 mg/dL; CREATININE 1.1 mg/dL (0.4-1.0); GFR - MDRD 49 (>89); GLUCOSE 288 mg/dL (70-100); HDL CHOLESTEROL 52 mg/dL; LDL CHOLESTEROL,CALCULATED 148 mg/dL; LDL/HDL RATIO 2.8 (<4.4); POTASSIUM 4.5 mmol/L (3.5-5.0); SODIUM 135 mmol/L (135-145); TOTAL PROTEIN 7.3 g/dL (6.7-8.2); TRIGLYCERIDES 217 mg/dL; VLDL CHOLESTEROL 43 mg/dL
[2022-01-06 18:13] LABS: THYROID STIMULATING HORMONE 3.01 uIU/mL (0.34-5.60)
[2022-01-06 20:37] LABS: ESTIMATED AVERAGE GLUCOSE 232 mg/dL (70-100); HEMOGLOBIN A1c% 9.7 % (4.27-6.07)
== END 2022-01-06 11:54 | disposition home or self-care (01) ==
LOC: LAB.N 11:53
PROVIDERS: ATTEND Nurse Practitioner Family
DX: I10 Essential (primary) hypertension (principal); E78.5 Hyperlipidemia, unspecified; E11.8 Type 2 diabetes mellitus with unspecified complications
CPT/HCPCS: 36415; 80053; 80061; 83036; 83721; 84443

== ENCOUNTER 2022-05-02 12:31 | Outpatient (CLI) | payer MEDICARE, BC ==
--- NOTE | 2022-05-02 16:03 | XRAY Report ---
PROCEDURE: Lumbar Spine 2 View INDICATIONS: LOW BACK PX TECHNIQUE: 3 views of the lumbar spine were acquired. COMPARISON: Lumbar spine radiographs January 07, 2015. FINDINGS: Bones: 5 [id number] vertebrae appear to be present. Moderate right convexity curvature centere d at L2. 12 mm anterolisthesis L5 on S1, possible pars defects at this level. Superior multilevel deg enerative changes with disc height loss, endplate spurring, and facet arthropathy. No definite vertebral body compression fractures. No suspicious bony lesions. Bilateral hip arthrop lasty partially imaged. Soft tissues: Overlying bowel gas pattern is normal. No suspicious soft tissue calcifications. IMPRESSION: Severe lumbar spine degenerative changes. Reviewed by: Robert Patiño MD on 05/02/2022 4:02 PM PDT Approved by: Robert Patiño MD on 05/02/2022 4:02 PM PDT Station ID: [id number]
--- NOTE | 2022-05-02 16:33 | XRAY Report ---
PROCEDURE: Hip w/Pelvis 1V LT INDICATIONS: L HIP PX TECHNIQUE: AP pelvis with lateral view(s) of the left hip(s). COMPARISON: None. FINDINGS: Bones: Patient is status post prior bilateral total hip arthroplasty. Hip alignment is anatomic. No gross hardware loosening or failure. No fractures or dislocations. Pelvic ring appears intact. No s uspicious bony lesions. Degenerative disc disease and scoliosis in visualized lower lumbar spine is seen. Soft tissues: The visualized bowel gas pattern is normal. No suspicious soft tissue calcifications. IMPRESSION: Prior bilateral total hip arthroplasty with anatomic hip alignment. No fracture or disloc ation. No evidence of hardware complication. Reviewed by: Cody Montiel MD on 05/02/2022 4:32 PM PDT Approved by: Cody Montiel MD on 05/02/2022 4:32 PM PDT Station ID: [id number]
== END 2022-05-02 12:32 | disposition home or self-care (01) ==
LOC: DI.N 12:31
PROVIDERS: ATTEND Nurse Practitioner Family
DX: M51.36 Other intervertebral disc degeneration, lumbar region (principal); M47.816 Spondylosis without myelopathy or radiculopathy, lumbar region; M43.17 Spondylolisthesis, lumbosacral region; M25.552 Pain in left hip; Z96.642 Presence of left artificial hip joint

== ENCOUNTER 2022-06-28 09:27 | Outpatient (CLI) | payer MEDICARE, BC ==
[2022-06-28 19:42] LABS: BASOPHILS # (AUTO) 0.1 10^3/uL (0.0-0.1); BASOPHILS % (AUTO) 1.1 %; EOSINOPHILS # (AUTO) 0.4 10^3/uL (0.0-0.7); EOSINOPHILS % (AUTO) 3.7 %; HCT - HEMATOCRIT 40.4 % (37.0-47.0); HGB - HEMOGLOBIN 12.4 g/dL (12.0-16.0); LYMPHOCYTES # (AUTO) 3.1 10^3/uL (1.5-3.5); LYMPHOCYTES % (AUTO) 28.3 %; MEAN CORPUSCULAR HEMOGLOBIN 27.6 pg (27.0-31.0); MEAN CORPUSCULAR HGB CONC 30.7 g/dL (32.0-36.0); MONOCYTES # (AUTO) 0.8 10^3/uL (0.0-1.0); MONOCYTES % (AUTO) 6.9 %; NEUTROPHILS # (AUTO) 6.5 10^3/uL (1.5-6.6); NEUTROPHILS % (AUTO) 59.7 %; PLT - PLATELET COUNT 333 10^3/uL (130-450); RED BLOOD COUNT 4.49 10^6/uL (4.20-5.40); RED CELL DISTRIBUTION WIDTH 14.4 % (12.0-15.0)
[2022-06-28 20:37] LABS: ALBUMIN 3.7 g/dL (3.2-5.5); ALBUMIN/GLOBULIN RATIO 0.9 (1.0-2.2); ALKALINE PHOSPHATASE 84 IU/L (42-121); ALT ALANINE AMINOTRANSFERASE 17 IU/L (10-60); AST ASPARTATE AMINOTRANSFERASE 21 IU/L (10-42); BILIRUBIN,TOTAL 0.5 mg/dL (0.2-1.0); BUN - BLOOD UREA NITROGEN 23 mg/dL (6-20); CALCIUM 9.9 mg/dL (8.5-10.3); CARBON DIOXIDE - CO2 28 mmol/L (21-32); CHLORIDE 101 mmol/L (101-111); CHOL/HDL RATIO 3.2 (<4.4); CHOLESTEROL 152 mg/dL; GFR - MDRD 55 (>89); GLUCOSE 192 mg/dL (70-100); HDL CHOLESTEROL 48 mg/dL; LDL CHOLESTEROL,CALCULATED 63 mg/dL; LDL/HDL RATIO 1.3 (<4.4); POTASSIUM 4.6 mmol/L (3.5-5.0); SODIUM 138 mmol/L (135-145); TOTAL PROTEIN 7.6 g/dL (6.7-8.2); TRIGLYCERIDES 204 mg/dL; VLDL CHOLESTEROL 41 mg/dL
[2022-06-28 21:27] LABS: ESTIMATED AVERAGE GLUCOSE 197 mg/dL (70-100); HEMOGLOBIN A1c% 8.5 % (4.27-6.07)
== END 2022-06-28 09:28 | disposition home or self-care (01) ==
LOC: LAB.N 09:27
PROVIDERS: ATTEND Nurse Practitioner Family
DX: I10 Essential (primary) hypertension (principal); E78.5 Hyperlipidemia, unspecified; E11.65 Type 2 diabetes mellitus with hyperglycemia; Z79.4 Long term (current) use of insulin
CPT/HCPCS: 36415; 80053; 80061; 83036; 83721; 85025

== ENCOUNTER 2022-10-17 11:14 | Outpatient (CLI) | payer MEDICARE, BC ==
[2022-10-17 20:55] LABS: ESTIMATED AVERAGE GLUCOSE 212 mg/dL (70-100)
== END 2022-10-17 11:15 | disposition home or self-care (01) ==
LOC: LAB.N 11:14
PROVIDERS: ATTEND Nurse Practitioner
DX: E11.8 Type 2 diabetes mellitus with unspecified complications (principal)
CPT/HCPCS: 36415; 83036

== ENCOUNTER 2023-02-28 09:26 | Outpatient (CLI) | payer MEDICARE, BC ==
[2023-02-28 11:50] LABS: BASOPHILS # (AUTO) 0.1 10^3/uL (0.0-0.1); BASOPHILS % (AUTO) 0.7 %; EOSINOPHILS # (AUTO) 0.3 10^3/uL (0.0-0.7); EOSINOPHILS % (AUTO) 3.4 %; HCT - HEMATOCRIT 37.3 % (37.0-47.0); HGB - HEMOGLOBIN 11.3 g/dL (12.0-16.0); LYMPHOCYTES # (AUTO) 2.7 10^3/uL (1.5-3.5); LYMPHOCYTES % (AUTO) 26.7 %; MEAN CORPUSCULAR HEMOGLOBIN 26.7 pg (27.0-31.0); MEAN CORPUSCULAR HGB CONC 30.3 g/dL (32.0-36.0); MEAN CORPUSCULAR VOLUME 88.2 fL (81.0-99.0); MEAN PLATELET VOLUME 10.8 fL (7.9-10.8); MONOCYTES # (AUTO) 0.6 10^3/uL (0.0-1.0); MONOCYTES % (AUTO) 6.4 %; NEUTROPHILS # (AUTO) 6.2 10^3/uL (1.5-6.6); NEUTROPHILS % (AUTO) 62.4 %; PLT - PLATELET COUNT 298 10^3/uL (130-450); RED BLOOD COUNT 4.23 10^6/uL (4.20-5.40); RED CELL DISTRIBUTION WIDTH 14.6 % (12.0-15.0); WHITE BLOOD COUNT 9.9 x10^3/uL (4.8-10.8)
[2023-02-28 12:05] LABS: ESTIMATED AVERAGE GLUCOSE 237 mg/dL (70-100); HEMOGLOBIN A1c% 9.9 % (4.27-6.07)
[2023-02-28 12:08] LABS: ALBUMIN 3.9 g/dL (3.2-5.5); ALBUMIN/GLOBULIN RATIO 1.2 (1.0-2.2); ALKALINE PHOSPHATASE 98 IU/L (42-121); ALT ALANINE AMINOTRANSFERASE 9 IU/L (10-60); AST ASPARTATE AMINOTRANSFERASE 13 IU/L (10-42); BILIRUBIN,TOTAL 0.3 mg/dL (0.2-1.0); BUN - BLOOD UREA NITROGEN 22 mg/dL (6-20); CALCIUM 9.9 mg/dL (8.5-10.3); CARBON DIOXIDE - CO2 29 mmol/L (21-32); CHLORIDE 103 mmol/L (101-111); CHOL/HDL RATIO 3.8 (<4.4); CHOLESTEROL 199 mg/dL; CREATININE 1.2 mg/dL (0.6-1.3); GFR - MDRD 44 (>89); GLUCOSE 208 mg/dL (74-104); HDL CHOLESTEROL 52 mg/dL; LDL CHOLESTEROL,CALCULATED 109 mg/dL; LDL/HDL RATIO 2.1 (<4.4); POTASSIUM 4.9 mmol/L (3.5-4.5); SODIUM 137 mmol/L (135-145); TOTAL PROTEIN 7.1 g/dL (6.4-8.9); TRIGLYCERIDES 189 mg/dL (48-352); VLDL CHOLESTEROL 38 mg/dL
[2023-02-28 12:14] LABS: THYROID STIMULATING HORMONE 2.15 uIU/mL (0.34-5.60)
== END 2023-02-28 09:27 | disposition home or self-care (01) ==
LOC: LAB.N 09:26
PROVIDERS: ATTEND Nurse Practitioner Family
DX: E78.5 Hyperlipidemia, unspecified (principal); I10 Essential (primary) hypertension; E11.65 Type 2 diabetes mellitus with hyperglycemia
CPT/HCPCS: 36415; 80053; 80061; 83036; 83721; 84443; 85025

== ENCOUNTER 2023-10-24 11:56 | Outpatient (CLI) | payer MEDICARE, BC ==
[2023-10-24 18:03] LABS: BASOPHILS # (AUTO) 0.1 10^3/uL (0.0-0.1); EOSINOPHILS # (AUTO) 0.4 10^3/uL (0.0-0.7); EOSINOPHILS % (AUTO) 4.7 %; HCT - HEMATOCRIT 39.9 % (37.0-47.0); HGB - HEMOGLOBIN 11.8 g/dL (12.0-16.0); LYMPHOCYTES # (AUTO) 2.4 10^3/uL (1.5-3.5); LYMPHOCYTES % (AUTO) 30.7 %; MEAN CORPUSCULAR HEMOGLOBIN 26.5 pg (27.0-31.0); MEAN CORPUSCULAR HGB CONC 29.6 g/dL (32.0-36.0); MEAN CORPUSCULAR VOLUME 89.5 fL (81.0-99.0); MEAN PLATELET VOLUME 10.8 fL (7.9-10.8); MONOCYTES # (AUTO) 0.5 10^3/uL (0.0-1.0); MONOCYTES % (AUTO) 6.7 %; NEUTROPHILS # (AUTO) 4.4 10^3/uL (1.5-6.6); NEUTROPHILS % (AUTO) 56.4 %; PLT - PLATELET COUNT 297 10^3/uL (130-450); RED BLOOD COUNT 4.46 10^6/uL (4.20-5.40); RED CELL DISTRIBUTION WIDTH 14.5 % (12.0-15.0); WHITE BLOOD COUNT 7.7 x10^3/uL (4.8-10.8)
[2023-10-24 18:17] LABS: ALBUMIN 3.8 g/dL (3.2-5.5); ALBUMIN/GLOBULIN RATIO 1.3 (1.0-2.2); BILIRUBIN,TOTAL 0.2 mg/dL (0.2-1.0); CALCIUM 10.3 mg/dL (8.5-10.3); CREATININE 1.2 mg/dL (0.6-1.3); POTASSIUM 4.5 mmol/L (3.5-4.5); TOTAL PROTEIN 6.8 g/dL (6.4-8.9)
[2023-10-24 21:20] LABS: ESTIMATED AVERAGE GLUCOSE 237 mg/dL (70-100); HEMOGLOBIN A1c% 9.9 % (4.27-6.07)
== END 2023-10-24 11:57 | disposition home or self-care (01) ==
LOC: LAB.N 11:56
PROVIDERS: ATTEND Nurse Practitioner Family
DX: E11.65 Type 2 diabetes mellitus with hyperglycemia (principal)
CPT/HCPCS: 36415; 80053; 83036; 85025

== ENCOUNTER 2024-03-13 10:00 | Outpatient (CLI) | payer MEDICARE, BC ==
[2024-03-13 12:20] LABS: CALCIUM 9.4 mg/dL (8.5-10.3); CREATININE 1.4 mg/dL (0.6-1.3); POTASSIUM 4.3 mmol/L (3.5-4.5)
[2024-03-13 12:36] LABS: ESTIMATED AVERAGE GLUCOSE 280 mg/dL (70-100); HEMOGLOBIN A1c% 11.4 % (4.27-6.07)
== END 2024-03-13 10:01 | disposition home or self-care (01) ==
LOC: LAB.N 10:00
PROVIDERS: ATTEND Nurse Practitioner Family
DX: E11.8 Type 2 diabetes mellitus with unspecified complications (principal)
CPT/HCPCS: 36415; 80048; 83036

== ENCOUNTER 2024-03-14 08:00 | Outpatient (CLI) | payer MEDICARE, BC ==
[2024-03-14 19:53] LABS: INFLUENZA A- RESP PCR PANEL NOT DETECTED; INFLUENZA B - RESP PCR PANEL NOT DETECTED; RSV- RESP PCR PANEL NOT DETECTED; SARS-CoV-2 -RESP PCR PANEL DETECTED
== END 2024-03-14 23:59 | disposition home or self-care (01) ==
LOC: LAB.WCP 08:00
PROVIDERS: ATTEND Nurse Practitioner Family
DX: U07.1 COVID-19 (principal)
CPT/HCPCS: 87637